=== PATIENT | male | born 1995 | race African-American/Black ===

== ENCOUNTER 2017-06-22 07:09 | Emergency (ER) | payer SELFPAY ==
[2017-06-22] MEDS: LIDOCAINE 1% (MDV) 10 ML INJ INFIL (07:44)
[2017-06-22] MEDS: LIDOCAINE 2% VISC 15 ML CUP PO (07:50)
[2017-06-22] MEDS: ACETAMINOPHEN 650MG/20.3ML CUP NGT (07:50)
[2017-06-22] MEDS: DIPHENHYDRAMINE 2.5 MG/ML 5ML CUP PO (07:51)
== END 2017-06-22 08:05 | disposition home or self-care (01) ==
LOC: FTE 07:09
DX: K08.89 Other specified disorders of teeth and supporting structures (principal); F17.210 Nicotine dependence, cigarettes, uncomplicated
CPT/HCPCS: 99283